=== PATIENT | male | born 1980 | race African-American/Black ===

== ENCOUNTER 2016-10-12 00:12 | Emergency (ER) | payer OTHER ==
[~2016-10-12] VITALS: Ht 182.9 cm; Wt 88.5 kg
[2016-10-12 01:13] VITALS: BP 146/103
[2016-10-12 02:15] VITALS: BP 141/95
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
--- NOTE | 2016-10-12 11:32 | Diagnostic Imaging Report ---
Indication: SOB Technique: One view of the chest Comparison: none Findings: Lungs and pleural spaces are clear. Heart size is normal. Impression: No acute process
== END 2016-10-12 02:05 ==
LOC: EDBD 00:12 → EMR 00:46
DX: S41.032A Puncture wound without foreign body of left shoulder, initial encounter (principal); Y35.891A Legal intervention involving other specified means, law enforcement official injured, initial encounter; Y93.9 Activity, unspecified; Y92.9 Unspecified place or not applicable
CPT/HCPCS: 71010; 99283